=== PATIENT | male | born 1985 | race Asian ===

== ENCOUNTER 2022-12-19 09:44 | Outpatient (CLI) | payer BC, SELFPAY | END 2022-12-19 09:45 | disposition home or self-care (01) | LOC: NFLDREF 12-23 10:03 | PROVIDERS: PCP Family Medicine; Referring Provider Family Medicine; Visit Provider Family Medicine | DX: Z00.00 Encounter for general adult medical examination without abnormal findings (principal); L98.9 Disorder of the skin and subcutaneous tissue, unspecified; Z13.6 Encounter for screening for cardiovascular disorders | CPT/HCPCS: 80048; 80061 ==